=== PATIENT | female | born 2000 | race Caucasian/White ===

== ENCOUNTER 2024-08-26 06:36 | Outpatient (REF) | payer SELFPAY ==
--- NOTE | ~2024-08-26 | US_ITS ---
EXAMINATION: US FIRST TRIMESTER OB HISTORY: AMENORRHEA, ? DATING TECHNIQUE: Endovaginal scanning was performed. FINDINGS: There is a single, live intrauterine . AUA = 11 weeks 5 days BRYANNA(AUA) = 03/12[birth year]2025 CRL = 4.88cm FHR = 153bpm Right ovary: The right ovary measures 2.8 x 2.0 x 1.2 cm and is unremarkable. Left ovary: The left ovary measures 2.9 x 1.6 x 2.0 cm and is unremarkable. Cul-de-sac: No free fluid US/US OB <= 14 weeks fetus IMPRESSION: Single, live intrauterine of estimated gestational age 11 weeks, 5 days. Electronically signed by: Jose Raul Mabry MD 08/26/2024 10:43 AM EDT
--- OUTSIDE RECORDS SUMMARY | 2024-08-26 06:38 | XMS_ITS | Clinical Summary ---
Author Organization [facility] Address [address] [place] [id number] Phone Care Team Providers Care Office System Analyst Name Role Phone Neelam Sarabia MD Primary Care Provider [phone] Allergies No known active allergies Medications escitalopram 10 MG tabletIndication s:Anxiety and depression TAKE 1 TABLET (10 MG TOTAL) BY MOUTH EVERY MORNING. 90 tablet 05/06/2024 Active Norethindrone Acet-Ethinyl Est (Aurovela 1.530) 1.5-30 MG-MCG tabletIndication s:Dysmenorrhea TAKE 1 TABLET BY MOUTH EVERY DAY 28 tablet 05/27/2024 Active Active Problems Problem Noted Date Diagnosed Date Anxiety and depression 07/23/2023 Assessment & Plan (01/23/2024 5:00 PM EDT): JUANCARLOS 11, PHQ 7. Doing well on Lexapro 10 Assessment & Plan (07/23/2023 5:46 PM EDT): Teresita has moderate depression and moderate anxiety based on PHQ9 and GAD7. She also may have mild OCD. I will start fluoxetine 10 mg daily X 1 week then increase to 20 mg daily.No safety concerns Influenza vaccine refused 07/13/2018 Irregular menstrual cycle 07/07/2017 Assessment & Plan (01/23/2024 5:00 PM EDT): On control, no concerns Benign neoplasm of skin 06/27/2016 Resolved Problems Problem Noted Date Diagnosed Date Resolved Date Dysmenorrhea 10/19/2020 04/26/2022 Assessment & Plan (04/15/2022 1:08 PM EST): Well managed on , refill sent. Has well visit scheduled later this month. Discussed monitoring for ACHES, using condoms with sexual activity, and not smoking. Call with questions/concerns, otherwise follow up at next well visit. Will plan to send GC/CT at well visit. Assessment & Plan (05/14/2021 3:39 PM EST): Well controlled on 1.5-, happy with pill. Refill sent. Discussed monitoring for ACHES, using condoms with sexual activity, and not smoking. Call with questions/concerns, otherwise follow up at next well visit. Scoliosis (and kyphoscoliosis), idiopathic 07/07/2017 09/28/2020 Overview (08/09/2022): Diagnosis load July 2022 Encounters Date Type Department Care Team Description 06/15/[address] [phone] Neelam Sarabia MD Medication Follow-up 06/09/2024 Patient Outreach [address] [phone] Katina Frankel RN Care Plan; SSRI Follow-up from Last 3 Months Immunizations Immunization Administration Dates Next Due COVID-19 Pfizer, monovalent, 12+ years 08/09/2020 COVID-19 Vaccine Moderna, se asonal, 12+ years 03/31/2023 DTaP 11/26/2007, 5,04/29/2003,02/12,2002 HPV Vaccine 9 Valent 07/07/2017,06/27/2016 Hep A 07/07/2017,06/27/2016 Hep B 07/29/2003,2002,2002 Hep B, ped/adol 04/15/2022 HiB 01/19/2004, 4,02/24/2003,12/13 IPV 11/26/2007, 5,02/24/2003,12/13 Influenza 01/19/2004 Influenza, injectable, quadrivalent 04/15/2022 MMR 11/26/2007,01/19/2004 Meningococcal B Bexsero 11/08/2020,09/27/2020 Meningococcal Conj (Menactra) MCV4P 07/16/2019,1 06/05/2013 PPD Test 04/15/2022,04/10/2022 04/12/2022 Pneumococcal Conjugate 01/19/2004,2003,02/24/2003,12/13 Tdap 01/23/2024,04/04/2014 Varicella 11/26/2007,10/18/2003 Family History Medical History Relation Name Comments Asthma Mother Basal cell carcinoma Mother Melanoma Mother Cancer (Childhood Onset) Sister Relation Name Status Comments Mother Other : melanoma, bas al cell: mother Asthma Cancer, Type: (sister passed @ 7yrs old) Food Allergies Sister Social History Tobacco Use Types Packs/Day Years Used Date Smoking Tobacco: Never Smokeless Tobacco: Never Alcohol Use Standard Drinks/Week Comments Not Currently 0 (1 standard drink = 0.6 oz pur e alcohol) 2 drinks per week Hunger/Food Answer Date Recorded In the last 12 months, did y ou or your family ever eat less than you felt you should because there wasn't enough money for food? No 01/23/2024 Stable Housing Answer Date Recorded Are you worried that in the next 2 months you may not have stable housing? No 01/23/2024 Transportation Concerns Answer Date Rec orded In the last 12 months, have you or your family ever had to go without healthcare because you didn't have a way to get there? No 01/23/2024 Hazards in Home Answer Date Recorded Think about the place you li ve. Do you have problems with any of the following? Pests (mice or roaches), mold, no/not working smoke detectors, water leaks, no window guards. No 2023 Financing Utilities Answer Date Recorde d In the last 12 months, has t he electric, gas, oil, or water company threatened to shut off your services in your home? No 01/23/2024 Safety at Home Answer Date Recorded Are you or your family worried about feeling saf e in your home? No 01/23/2024 Outside Support Answer Date Recorded Do you feel that you need mo re support from other people or programs to help you care for yourself or your family? No 01/23/2024 Understanding Health Concerns Answer Da te Recorded Do you need help understandi ng your or your child's healthcare needs (diagnosis, medications, plan, etc.)? No 01/23/2024 Financing Health Concerns Answer Date R ecorded In the last 12 months, was t here a time when your child needed to see a doctor or get medications or supplies but could not because of cost? No 01/23/2024 Missing School or Work Answer Date Theron rded Did you or your child miss s chool or work because of a health problem that could have been avoided? No 01/23/2024 Child Education Answer Date Recorded Do you have concerns about y our/your child's learning or behavior in school, preschool, or daycare? No 01/23/2024 Comments No Sex and Gender Information Value Date Recorded Sex Assigned at Not on file Legal Sex Female 6:25 PM EDT Gender Identity Not on file Sexual Orientation Straight 07/16/2019 12 :08 PM EDT Last Filed Vital Signs Vital Sign Reading Time Taken Comments Blood Pressure 118/78 01/23/2024 2:55 PM EDT Pulse 68 01/23/2024 2:55 PM EDT Temperature 37 ??C (98.6 ??F) 07/12/2013 11:28 AM EDT Respiratory Rate - - Oxygen Saturation - - Inhaled Oxygen Concentration - - Weight 75.4 kg (166 lb 3.2 oz) 01/23/2024 2:55 P M EDT Height 173.4 cm (5' 8.25 ) 01/23/2024 2:55 PM ED T Body Mass Index 25.09 01/23/2024 2:55 PM EDT Plan of Treatment Health Maintenance Due Date Last Done Comments HIV Screening 2017 Hepatitis C Screening 2020 Chlamydia and Gonorrhea Screening 04/14/2024 01/23/2024, 04/24/2022, 09/27/2020 DTaP,Tdap,and Td Vaccines (8 - Td or Tdap) 01/22/2034 01/23/2024, 04/04/2014, 11/26/2007, Additional history exists HIB Vaccines Completed 01/19/2004, 04/14, 02/24/2003, Additional history exists Pneumococcal Vaccine Completed 01/19/2004, 04/29/2003, 02/24/2003, Additional history exists IPV Vaccines Completed 11/26/2007, 04/16, 02/24/2003, Additional history exists MMR Vaccines Completed 11/26/2007, 01/19/2004 Varicella Vaccines Completed 11/26/2007, 10/18/2003 HPV Vaccines Completed 07/07/2017, 06/27/2016 Hepatitis A Vaccines Completed 07/07/2017, 06/28/19 17 Meningococcal Vaccine Completed 07/16/2019, 014 Men B Vaccine Completed 11/08/2020, 09/27/2020 Hepatitis B Vaccines Completed 04/15/2022, 07/29/2003, 2002, Additional history exists Influenza Vaccines Completed 01/09/2024, 0 12/31/2022, 04/15/2022, Additional history exists COVID-19 Vaccine Completed 02/19/2024, , 04/16/2021, Additional history exists Goals Goal Patient Goal Type Associated Problems Recent Progress Patient-Stated? Author Take anxiety medication(s) as prescibed General Not on track( 5 3:31 PM EST) No Katina Frankel, PRATIK Note: 07/22 Fluoxetine 10mg once daily x 1 week then increase to fluoxetine 20mg once daily. 10/07/23- fluoxetine discontinued-hives. Lexapro 10mg x 2 wks then increase to Lexapro 15mg. 12/01/23 Lexapro 10mg for several weeks- no side effects noted. Mood stable. Increase to Lexapro 15mg. Follow up 01/07/24 as planned. 01/23/24 Doing well on Lexapro 10mg, never increased to Lexapro 15mg. 06/10/24- Feels like could benefit from an increase in her Lexapro. No specific reason just general anxiety. Lexapro increased to 15mg daily. Med ck in 1 month. Use Anxiety Guided Self-Management tool General On track( 5 3:32 PM EST) No Katina Frankel, PRATIK Note: Utilize self guides daily, not just when feeling anxious. The more you practice deep breathing, mindfulness, muscle relaxation, thinking traps and facing your fears the easier managing your anxiety will be. Patient/Parent would like to manage anxiety better Care Plan Patient is having increased feelings of anxiety Expected goal attainment (0)(06/09/2024 11:50 AM EST) No Katina Frankel RN Note: Patient would like to not have panic attacks and be less anxious about school. Procedures * Due to [place] law, this organization might not be sharing sensitive test results. Procedure Name Priority Date/Time Associated Diagnosis Comments CHLAMYDIA AND GONORRHEA, AMPLIFIED Routine 01/23/2024 3:28 PM EDT Encounter for screening examination for sexually transmitted disease from Last 3 Months or Most Recently Relevant to Health Maintenance Results * Due to [facility] law, this organization might not be sharing sensitive test results. * Chlamydia and Gonorrhoea, Amplified (01/23/2024 3:28 PM EDT) Chlamydia trachomatis RNA, TMA NOT DETECTED NOT DETECTED [facility] Neisseria gonorrhoeae, OSBALDO NOT DETECTED NOT DETECTED [facility] Comment [facility] Comment: The analytical performance characteristics of this assay, when used to test SurePath(TM) specimens have been determined by [facility]. The modifications have not been cleared or approved by the FDA. This assay has been validated pursuant to the CLIA regulations and is used for clinical purposes. For additional information, please refer to https://education.[employer]/faq/INE459 (This link is being provided for information/ educational purposes only.) Urine (Urine, Random (not clean void)) 01/23/2024 3:28 PM EDT 01/23/2024 10:26 PM EDT Narrative Resulting Agency Comment Performing Organization Information: ?Site ID: [id number] ?Name: [facility] ?Address: [address] [place] [id number] ?Director: Elias Brewer Valeria Watkins NP LAB MICROBIOLOGY - GENERAL ORDERABLES Final Result [facility] from Last 3 Months or Most Recently Relevant to Health Maintenance Additional Health Concerns Active Problems Noted Date Diagnosed Date Patient is having increased feelings of anxiety 08/05/2023 Note: Teresita has felt increased anxiety at college. She has trouble falling asleep and wakes once at night. She worries about school, exams even though doing ok. Has occ panic attack where she has tachycardia, queasy stomach and breathes fast. Teresita has been given therapy resources through [facility]. She does not have rituals but likes everything in it's place and dislikes disorder. She will rewash dishes if she does not think they were washed well. She will redo anything that she feels is not up to her expectations Insurance AETNA AET[employer] Care Teams Office System Analyst Relationship Specialty Start Date End Date Neelam Sarabia MD [address] [place] [id number] PCP - General 08/20/17
--- OUTSIDE RECORDS SUMMARY | 2024-08-26 06:38 | XMS_ITS ---
Care Plan Created on: August 26, 2024 Teresita Cloud : 2000 Sex: Female Author Organization [facility] Address [address] [place] [phone] Phone Care Team Providers Care Extract Mixer Name Role Phone Neelam Sarabia MD Primary Care Provider [phone] Active Problems Problem Noted Date Diagnosed Date [...] (05/14/2021 3:39 PM EST): Well controlled on .5-, happy with pill. Refill sent. Discussed monitoring for ACHES, using condoms with sexual activity, and not smoking. Call with questions/concerns, otherwise follow up at next well visit. Scoliosis (and kyphoscoliosis), idiopathic 07/07/2017 09/28/2020 Overview (08/09/2022): Diagnosis load July 2022 Additional Health Concerns Active Problems Noted Date [...] Teresita has been given therapy resources through [facility]. She does not have rituals but likes everything in it's place and dislikes disorder. She will rewash dishes if she does not think they were washed well. She will redo anything that she feels is not up to her expectations Goals Goal Patient Goal Type Associated Problems Recent Progress Patient-Stated? Author Take anxiety medication(s) as prescibed General Not on track( 5 3:31 PM EST) No Katina Frankle, PRATIK Note: 07/22 Fluoxetine 10mg once daily [...] attacks and be less anxious about school. Interventions Care Plan Interventions Intervention Entry Date Outcome Review and use teach back to confirm patient/caregiver 08/05/2023 Note:[id number] medication start and with any dose change: Monitor for any side effects such as nausea, vomiting, insomnia, restlessness, agitation, or suicidal ideation. Call the office immediately if any of these occur. Discussed importance of taking medication as directed. Side effects can occur with missed dose. Educate patient/caregiver 08/05/2023 Note: Reviewed Anxiety Self-Guides: Deep breathing, Relaxation, Muscle Relaxation, Thinking Traps and Facing Your Fears. Breathing exercises for stress Let your breath flow as deep down into your belly as is comfortable, without forcing it. Try breathing in through your nose and out through your mouth. Breathe in gently and regularly. ... Then let it flow out gently, counting from 1 to 5 again, if you find this helpful. Mindfulness Exercises Sit quietly with your feet on the floor, or lie down, and relax your body. Begin with some slow, diaphragmatic breathing. Focus your mind on your breath as it flows in and out of your nostrils. Continue to follow your breath to whatever extent you can. 2. As you breathe, notice the tendency of the mind to wander. Instead of trying to focus just on the breath, just notice what the mind does. It may wander to a worry, or a memory, or to what you plan to do later today. You may notice sensations in your body, such as a pain or itch. You may hear or smell things. Just notice whatever happens and then gently bring yourself back to your breath. You can remind yourself that you will tend to these other things later, and for now you will just spend time paying attention to your breath and to your mind. 3. Allow the mind to wander as it will, time after time. Avoid the tendency to try hard to focus on something. Simply allow your mind to wander and then bring yourself back to your breath. Notice the tendency of your experience to change. Imagine that each thought, sensation, emotion, is like a cloud floating through the yolanda, soon to be replaced by another one. 4. Continue to practice this for about 10 minutes. Depending on your schedule you can add time to your practice if you want. Practice once or twice a day. 5. Remember that there is no ? right? way to do this, other than to just notice whatever comes into your consciousness. It is impossible to ? fail? at mindfulness. Tips to soothe your nervous system: Deep breaths, moving breath from chest to belly and increasing length of exhale; you can also try humming or shushing during the exhale Give yourself a hug or ask for a hug from someone you trust Talk to someone you trust Turn on some smoothing or feel-good music Watch something that will make you laugh Take a warm bath or shower Try meditation flor like Headspace or Calm Practice some yoga or other gentle exercise Go outside if the weather permits Introduce gentle pressure, such as a weighted blanket or cuddling with a pet on your chest Muscle Relaxation First, squeeze the muscles in your forehead. Hold this feeling for 10-15 seconds and notice the increase in tightness and tension in these muscles. Allow these muscles to release any tension while you count for at least 30 seconds, or until this area feels entirely relaxed. Now tense the muscles in your jaw with your teeth together. Again you want to be holding this for 10-15 seconds so that you are able to notice the build in tension. Then slowly release the tension, counting to at least 30 seconds or until you are completely relaxed. This part should target both your neck and shoulders by bringing your shoulders up to your ears (or as high as possible in that direction without causing discomfort). Hold this for the same amount of time (10-15 seconds) and repeat the countdown, relaxing as you release the tension. With both hands, form a fist. Bring your fists towards the centre of your chest and tense the whole arm in this position. After holding for 10-15 seconds, release the tension and count up to at least 30 seconds. Increase tension in your buttocks for 10-15 seconds. Notice the tension and then start relaxing like in the previous steps. Slowly and steadily increase the tension throughout your thigh and calf muscle groups, hold this tension for 10-15 seconds and then release while you count for 30 seconds. Notice new feelings of relaxation and the tension melting away. Tense your feet and toes, tightening your muscles as much as possible. After holding, relax and feel your muscles decrease let go of tension and tightness. Thinking Traps Predicting that bad things will happen in the future. People with anxiety often spend a lot of time imagining bad things they fear will happen in the future. Example: ? This is the longest car ride ever. We're going to get stuck in traffic and miss the whole soccer tournament. Or we'll get into an accident! Ugh, this is so stressful!? Making little problems or worries seem like big problems. When we catastrophize, we make a big deal out of our worries, even when they might actually be pretty small. Example: ? I'm feeling nervous about my learner's permit test. I'm going to get all the questions wrong and never be able to drive! I should tell my mom I'm sick.? Assuming that because we were worried or nervous in one situation, we will feel like that again. When we overgeneralize, we ignore the unique facts about a situation. Example: ? Aleida laughed when I tripped in the cafeteria that one time. She's going to keep making fun of me and get other people to start doing it. Should I stop hanging out with her?? Seeing things as ? all good? or ? all bad.? When we use [id number] thinking, we ignore the fact that many situations are somewhere in between and have both positive and negative aspects. Example: ? I got an '86' on my math exam; 7 problems wrong. I'm an idiot! Will my grade go down? What if my parents are disappointed?? With any of the above thinking traps ask: What are the facts? What would I say to my friend? What can I do to take my mind off things? Facing your Fears The process of facing fears is called EXPOSURE. Exposure involves gradually and repeatedly going into feared situations until you feel less anxious. Exposure is not dangerous and will not make the fear worse. And after a while, your anxiety will naturally lessen. Starting with situations that are less scary, you work your way up to facing things that cause you a great deal of anxiety. Over time, you build up confidence in those situations and may even come to enjoy them. This process often happens naturally. A person who is afraid of the water takes swimming lessons every week and practises putting their feet and legs in the water, then the whole body and, finally, diving underwater. People with a fear of water can learn to love swimming. The same process occurs when people learn to ride a bike, skate, or drive a car. Starting with the situation that causes the least anxiety, repeatedly engage in that activity (e.g., saying ? hi? to the bus van driver everyday) until you start to feel less anxious doing it. If the situation is one that you can remain in for a prolonged period of time (such as standing on a balcony), stay in the situation long enough for your anxiety to lessen (e.g., standing on the balcony for 20-30 minutes). If the situation is short in duration, try ? looping? it, which involves doing the same thing over and over again for a set number of times (e.g., repeatedly driving back and forth over a bridge until you start to feel less anxious or making consecutive phone calls until you feel more comfortable doing it). If you stay in a situation long enough (or continue engaging in a specific activity), your anxiety will start to reduce. This is because anxiety takes a lot of energy and at some point it ? runs out of gas? . The longer you face something, the more you get used to it and the less anxious you will feel when you face it again. It is important to plan exposure exercises in advance; that way you feel more in control of the situation. Identify what you are going to do and when you plan to do it. It is important to practise on a regular basis. Some steps can be practised daily (e.g., driving over a bridge, taking an elevator, saying ? hi? to a stranger, touching doorknobs), while other steps can only be done once in a while (e.g., giving a formal presentation to a large group or taking a plane trip). However, the more often you practise the faster the fear will fade. Don? t forget to maintain the gains that you have made. Even if you have become comfortable doing something, it? s important to keep exposing yourself to it from time to time, so your fears don? t creep back. For example, if you have overcome a fear of needles, you should schedule routine blood tests or donate blood every six months so that your fear of needles does not return. It? s not easy facing fears. Reward yourself when you do it! It may be helpful to use specific rewards as a motivation to achieve a goal. For example, plan to purchase a special gift for yourself (DVD, CD, book, treat) or engage in a fun activity (rent a movie, go to the movies, go out for lunch or dinner, plan a relaxing evening) after you reach a goal. Don? t forget the power of positive self-talk (e.g., ? I did it!? ). TIP: Don't be discouraged if your fears start creeping back. This can happen from time to time, especially during stressful periods or transitions (for example, starting a new job or moving). This is normal. It just means that you need to start practicing using the tools - plan some exposures! Remember, coping with anxiety is a lifelong process. Related Goals and Interventions Goal Associated Intervent ions Patient/Parent would like to manage anxiety better Review and use teach back to confirm patient/caregiver; Educate patient/caregiver
--- OUTSIDE RECORDS SUMMARY | 2024-08-26 06:39 | XMS_ITS ---
Author Organization [facility] Address [address] [place] [phone] Phone Care Team Providers Care Cleaning Crew Member Name Role Phone Neelam Sarabia MD Primary Care Provider [phone] Care Management Program Status:Enrolled (Active) Start date:08/04/2023 Enrollment date:08/04/2023 Enrollment reason:Identified - Anxiety Case Team Name Relationship Phone Katina Frankel RN(Responsible Staff) [phone] Continued Care and Services Coordination
--- OUTSIDE RECORDS SUMMARY | 2024-08-26 06:39 | XMS_ITS | Clinical Summary ---
Author Organization [facility] Address [address] [place] [address] Care Team Providers Care Manager Configuration Name Role Phone Cornell Neelam Villa Primary Care Provider [phone] Allergies No known active allergies Medications Acetaminophen 160 MG/5ML ElixirIndication s:Radial head fracture, closed 2 tsp po x 1 now 10 mL 0 09/21/2012 Active Social History Tobacco Use Types Packs/Day Years Used Date Smoking Tobacco: Never Assessed Comments Unknown Sex and Gender Information Value Date Recorded Sex Assigned at Not on file Legal Sex Female 12:57 AM EDT Gender Identity Not on file Sexual Orientation Not on file Last Filed Vital Signs Vital Sign Reading Time Taken Comments Blood Pressure 109/50 09/21/2012 2:46 PM EDT Pulse 78 09/21/2012 2:46 PM EDT Temperature 37.1 ??C (98.7 ??F) 09/21/2012 2:46 PM ED T Respiratory Rate - - Oxygen Saturation - - Inhaled Oxygen Concentration - - Weight 38.7 kg (85 lb 6.4 oz) 09/21/2012 2:46 PM EDT Height 143.5 cm (4' 8.5 ) 09/21/2012 2:46 PM EDT Body Mass Index 18.81 09/21/2012 2:46 PM EDT Plan of Treatment Health Maintenance Due Date Last Done Comments Hepatitis C Screening 2002 MMR (1 of 1 - Standard series) 10/17/2003 Varicella (1 of 2 - 13+ 2-do se series) 10/17/2015 HPV Vaccine (1 - 3-dose series) 2017 Chlamydia 2018 Pap Smear 2018 DTaP/Tdap/Td (1 - Tdap) 2020 Hep B (1 of 3 - 19+ 3-dose series) 2021 COVID-19 Vaccine (1 - 2023-2 5 season) 2023 Influenza (#1) 2023 Zoster (Shingrix) (1 of 2) 2052 Hep A Aged Out No longer eligi ble based on patient's age to complete this topic Hib Aged Out No longer eligi ble based on patient's age to complete this topic Meningococcal ACWY Aged Out No longer eligible based on patient's age to complete this topic Pneumococcal Aged Out No longer eligi ble based on patient's age to complete this topic Polio (IPV/OPV) Aged Out No longer el igible based on patient's age to complete this topic Insurance [employer] PPO Care Teams Manager Configuration Relationship Specialty Start Date End Date Neelam Sarabia [facility] [address] [place] [id number] PCP - General 04/02/09
--- OUTSIDE RECORDS SUMMARY | 2024-08-26 06:39 | XMS_ITS ---
Author Name [facility] Organization Unknown History of Medication Use Medication Directions Dispensed Refills Start Date End Date Stat () 1.5 mg-30 mcg (21)/75 mg (7) tablet Take 1 tablet every day by oral route as directed. 06/24/2024 06/23/2024 active ciprofloxacin 250 mg tablet 06/23/2024 completed fluoxetine 10 mg capsule TAKE 2 CAPSULES BY MOUTH EVERY MORNING. 06/23/2024 completed prednisone 20 mg tablet TAKE 1 TABLET BY MOUTH EVERY DAY 06/23/2024 completed rifampin 300 mg capsule TAKE 2 CAPSULES (600 MG TOTAL) BY MOUTH DAILY FOR 4 MONTHS. TAKE ON EMPTY STOMACH 05/07/2023 completed () 1.5 mg-30 mcg (21)/75 mg (7) tablet active escitalopram 10 mg tablet TAKE 1 TABLET (10 MG TOTAL) BY MOUTH EVERY MORNING. active Immunizations Vaccine Date Source Lot Number Status COVID-19, mRNA, LNP-S, PF, t ris-sucrose, 30 mcg/0.3 mL 02/19/2024 [facility] [id number] completed Tdap 01/23/2024 [facility] [id number] completed Influenza, split virus, trivalent, PF 01/09/2024 [facility] [id number] completed COVID-19, mRNA, LNP-S, PF, 50 mcg/0.5 mL 03/31/2023 [facility] H [id number] completed Influenza, split virus, quadrivalent, PF 12/31/2022 [facility] H [id number] completed COVID-19, mRNA, LNP-S, bival ent, PF, 50 mcg/0.5 mL or 25mcg/0.25 mL dose 11/17/2022 [facility] [id number] completed Hep B, adolescent or pediatric 04/15/2022 [facility] [id number] completed Influenza, split virus, quad rivalent, preservative 04/15/2022 [facility] [id number] completed COVID-19, mRNA, LNP-S, PF, 30 mcg/0.3 mL dose 04/16/2021 [facility] [id number] completed meningococcal B, OMV [id number] leted meningococcal B, OMV 09/27/2020 [facility] [id number] comp leted COVID-19, mRNA, LNP-S, PF, 30 mcg/0.3 mL dose 08/30/2020 [facility] [id number] completed COVID-19, mRNA, LNP-S, PF, 30 mcg/0.3 mL dose 08/09/2020 [facility] [id number] completed meningococcal MCV4P 07/16/2019 [facility] [id number] compl eted Tdap 04/04/2014 [facility] completed MMR 11/26/2007 [facility] completed varicella 11/26/2007 [facility] completed MMR 01/19/2004 [facility] completed varicella 10/18/2003 [facility] completed Hep B, adult 07/29/2003 [facility] completed Hep B, adult 2002 [facility] Encounters Encounter Type Encounter Reason Primary Diagnosis Location Date Ambulatory Encntr screen for infections w sexl mode of transmiss Encntr screen for infections w sexl mode of transmiss [facility] 06/24/2024 Ambulatory no current diagnosis [facility] 05/07/2023 Care Team Organization Name Specialty Phone Email Start Date End Da te [facility] 05/07/2023 [facility] 05/07/2023
--- OUTSIDE RECORDS SUMMARY | 2024-08-26 06:39 | XMS_ITS | Encounter Summary ---
Author Organization [facility] Address [address] [place] [phone] Phone Care Team Providers Care Check Out Clerk Name Role Phone Neelam Sarabia MD Primary Care Provider Reason for Visit * Reason Onset Date Comments Med Refill 05/23/2023 Encounter Details Date Type Department Care Team (Late st Contact Info) Description 05/23/2023 Refill Child [facility] [address] [address] Neelam Sarabia MD [address] [place] [address] Dysmenorrhea Social History Tobacco Use Types Packs/Day Years Used Date Smoking Tobacco: Never Smokeless Tobacco: Never Alcohol Use Standard Drinks/Week Comments Yes 1 (1 standard drink = 0.6 oz pur e alcohol) Hunger/Food Answer Date Recorded In the last 12 months, did y ou or your family ever eat less than you felt you should because there wasn't enough money for food? No 04/24/2022 Stable Housing Answer Date Recorded Are you worried that in the next 2 months you may not have stable housing? No 04/24/2022 Transportation Concerns Answer Date Rec orded In the last 12 months, have you or your family ever had to go without healthcare because you didn't have a way to get there? No 04/24/2022 Hazards in Home Answer Date Recorded Think about the place you li ve. Do you have problems with any of the following? Pests (mice or roaches), mold, no/not working smoke detectors, water leaks, no window guards. No 2022 Financing Utilities Answer Date Recorde d In the last 12 months, has t he electric, gas, oil, or water company threatened to shut off your services in your home? No 04/24/2022 Safety at Home Answer Date Recorded Are you or your family worried about feeling saf e in your home? No 04/24/2022 Outside Support Answer Date Recorded Do you feel that you need mo re support from other people or programs to help you care for yourself or your family? No 04/24/2022 Understanding Health Concerns Answer Da te Recorded Do you need help understandi ng your or your child's healthcare needs (diagnosis, medications, plan, etc.)? No 04/24/2022 Financing Health Concerns Answer Date R ecorded In the last 12 months, was t here a time when your child needed to see a doctor or get medications or supplies but could not because of cost? No 04/24/2022 Missing School or Work Answer Date Theron rded Did you or your child miss s chool or work because of a health problem that could have been avoided? No 04/24/2022 Comments No Sex and Gender Information Value Date Recorded Sex Assigned at Not on file Legal Sex Female 6:25 PM EDT Gender Identity Not on file Sexual Orientation Straight 07/16/2019 12 :08 PM EDT documented as of this encounter Plan of Treatment Not on file documented as of this encounter Visit Diagnoses Diagnosis Dysmenorrhea documented in this encounter Care Teams Check Out Clerk Relationship Specialty Start Date End Date Neelam Sarabia MD [address] [place] [phone] PCP - General 08/20/17 documented as of this encounter
--- OUTSIDE RECORDS SUMMARY | 2024-08-26 06:39 | XMS_ITS | Encounter Summary ---
Author Organization [facility] Address [address] [place] [phone] Phone Care Team Providers Care Acetone Recovery Worker Name Role Phone Neelam Sarabia MD Primary Care Provider [phone] Reason for Visit * Reason Onset Date Comments Med Refill 05/26/2022 Encounter Details Date Type Department Care Team (Late st Contact Info) Description 05/26/2022 Refill [facility] [address] [address] Neelam Sarabia MD [address] [place] [phone] Positive QuantiFERON-TB Gold test Social History Tobacco Use Types Packs/Day Years [...] as of this encounter Visit Diagnoses Diagnosis Positive QuantiFERON-TB Gold test documented in this encounter Care Teams Acetone Recovery Worker Relationship Specialty Start Date End Date Neelam Sarabia MD [address] [place] [phone] PCP - General 08/20/17 documented as of this encounter
--- OUTSIDE RECORDS SUMMARY | 2024-08-26 06:39 | XMS_ITS | Data Portability ---
Author Organization [place] [facility] Address [address] [facility] [id number] [place] [address] Care Team Providers Care Coal Yard Supervisor Name Role Phone MARYANA ERVIN Fios Line Installer Unavailable ITALO CASTRO Primary Care Provider Assessment No assessment recorded. Plan of Treatment Reminders Order Date Submit Date Provider Last Modified By Organization Details Last Modified Time Details Appointments ANNUAL RECREATION THERAPY TEACHER 15 2025 09:00A M Maryana Ervin MD Not available Not available Not available Lab CT + NG + TV, DNA, urine/sw ab 2024 025 [place] In-Office Order, Internal Use Only DO Not Attach Compendium DO Not Attach Compendium, Do Not Delete/merge, [id number] 06/25/2024 13:03:58 pap, IG + reflex HPV 2024 025 [facility], [address] [place], [address] 06/29/2024 10:54:38 Referral None recorded . Procedures None recorded . Surgeries None recorded . Imaging None recorded . Medication Orders .09/10 (28) 1.5 mg-30 mcg (21)/75 mg (7) tablet 2024 025 [place] [id number], [address] [facility], [place], [address], 06/24/2024 08:53:30 Patient TargetsNo targets recorded. Patient InstructionsNo instructions recorded. Reason for Referral None Reported. Results Created Date Observation Date Name Description Value Unit Range Abnormal Flag Note LastModifiedBy Organization Detail LastModifiedTime 01/25/05/08/2023 CT + NG + TV, DNA, urine /swab gonorrhea (GC) negati ve negati ve normal Not Available In-Office Order Internal Use Only DO Not Attach Compendium DO Not Attach Compendium, Do Not Delete/merge, [id number] 05/07/2023 13:47:20 05/08/19 24 05/08/2023 CT + NG + TV, DNA, urine /swab chlamydia (CT) negati ve negati ve normal Not Available In-Office Order Internal Use Only DO Not Attach Compendium DO Not Attach Compendium, Do Not Delete/merge, [id number] 05/07/2023 13:47:20 05/08/19 24 05/08/2023 CT + NG + TV, DNA, urine /swab trichomonias is (TV) negati ve negati ve normal Not Available In-Office Order Internal Use Only DO Not Attach Compendium DO Not Attach Compendium, Do Not Delete/merge, 05/07/2023 13:47:20 06/25/1906/24/2024 THINP REP PAP TEST (IMAG ER) WITH HPV REFLE X report Report Final Gynec ologi reg Cytol ogy Repor t ----- ----- ----- ----- ----- ----- ----- ----- ----- ----- ----- ----- ThinP rep Pap Test with HPV Refle x SPECI MEN ADEQU ACY: SATIS FACTO RY FOR EVALU ATION ; ENDOC ERVIC AL/TR ANSFO RMATI ON ZONE COMPO NENT PRESE NT. INTER PRETA TION: NEGAT ELIZA FOR INTRA EPITH ELIAL LESIO N OR GIRISH RAMIREZ . Itzel girard: [place] ([facility] ) Elect bruna girard: [place], [place] ([facility] ) ----- ----- ----- ----- ----- ----- ----- ----- ----- ----- ----- ----- CLINI REG INFOR COURTNEY N: LMP: 06/06 Clini reg Histo ry: RTN Biops y Date: NG Speci men Sourc e: Cervi x, Endoc ervix Previ ous Pap Date: NG CPT Codes : 74999 ICD Codes : Z12.4 Not Available [facility] [address] [place], [address] 06/29/2024 10:54:37 06/26/1906/25/2024 CT + NG + TV, DNA, urine /swab gonorrhea (GC) negati ve negati ve normal Not Available In-Office Order Internal Use Only DO Not Attach Compendium DO Not Attach Compendium, Do Not Delete/merge, [id number] 06/24/2024 08:41:51 06/26/1906/25/2024 CT + NG + TV, DNA, urine /swab chlamydia (CT) negati ve negati ve normal Not Available In-Office Order Internal Use Only DO Not Attach Compendium DO Not Attach Compendium, Do Not Delete/merge, [id number] 06/24/2024 08:41:51 06/26/1906/25/2024 CT + NG + TV, DNA, urine /swab trichomonias is (TV) negati ve negati ve normal Not Available In-Office Order Internal Use Only DO Not Attach Compendium DO Not Attach Compendium, Do Not Delete/merge, [id number] 06/24/2024 08:41:51 Result Notes None recorded. Problems No Known Problems Medical Equipment None Reported. Allergies No known drug allergies Medications Name Sig Start Date Stop Date Status Note LastModified by Organization Details LastModified Time prednisone 20 mg tablet TAKE 1 TABLET BY MOUTH EVERY DAY 06/23 completed Not Available Not Available Not Available ciprofloxac in 250 mg tablet 06/23 completed Not Available Not Available Not Available rifampin 300 mg capsule TAKE 2 CAPSULES (600 MG TOTAL) BY MOUTH DAILY FOR 4 MONTHS. TAKE ON EMPTY STOMACH 05/07 completed Not Available Not Available Not Available fluoxetine 10 mg capsule TAKE 2 CAPSULES BY MOUTH EVERY MORNING. 06/23 completed Not Available Not Available Not Available escitalopra m 10 mg tablet TAKE 1 TABLET (10 MG TOTAL) BY MOUTH EVERY MORNING. active Not Available Not Available No t Available (21) 1.5 mg-30 mcg tablet TAKE 1 TABLET BY MOUTH EVERY DAY 06/23 completed Not Available Not Available Not Available (28) 1.5 mg-30 mcg (21)/75 mg (7) tablet TAKE 1 TABLET BY MOUTH EVERY DAY DIRECTED active Not Available Not Available No t Available Vitals Date Recorded Body weight Body mass index (BMI) Body mass index (BMI) Percentile per age and sex Body height Systolic blood pressure Diastolic blood pressure Provider Name and Address Organization Details Last Updated DateTime 4 82862.0 4 g 22.4 kg/m2 57 % 175.26 cm 102 mm[Hg] 62 mm[Hg] Rekha Tom [facility] 4 13:38:07 Date Recorded Body height Body mass index (BMI) Body weight Systolic blood pressure Diastolic blood pressure Provider Name and Address Organization Details Last Updated DateTime 06/24/2024 175.26 cm 22.2 kg/m2 86973.86 g 112 mm[Hg] 62 mm[Hg] Meggan Huang [facility] 5 08:40:39 Social History Question Answer Notes LastModified by Organizat ion Details LastModified Time Tobacco Smoking Status [facility] 13:35:55 Do You Have An Advance Directive? No Information n ot available 06/24/2024 How Many Years Have You Consumed Alcohol? 0 Information not available 06/24/2024 What Is Your Level Of Caffeine Consumption? None Information not available 06/24/2024 In The 14 Days Before Symptom Onset, Have You Had Close Contact With A Laboratory-confirm ed COVID-19 While That Case Was Ill? No Information n ot available 06/24/2024 In The 14 Days Before Symptom Onset, Have You Had Close Contact With A Person Who Is Under Investigation For COVID-19 While That Person Was Ill? No Information not available 06/24/2024 Have You Been To An Area Known To Be High Risk For COVID-19? No Information not available 06/24/2024 How Many Alcoholic Drinks Do You Consume Per Day On Average? 0 Information not available 06/24/2024 Do You Reside In Or Have You Traveled To An Area Where Ebola Virus Transmission Is Active? No Information not available 06/24/2024 What Is The Highest Grade Or Level Of School You Have Completed Or The Highest Degree You Have Received? [id number] Information not available 06/24/2024 Have There Been Any Changes To Your Family Or Social Situation? No Information no t available 06/24/2024 Have You Recently Or Are You Planning To Travel To An Area With Zika Virus? No Information not available 06/24/2024 How Many Times In The Past Year Have You Used An Illegal Drug Or Used A Prescription Medication For Nonmedical Reasons? 0 Information not available 06/24/2024 Do You Have Any Children? No Information not available 05/07/2023 Does Your Partner Physically Hurt You Or Threaten To Hurt You? No Information not available 05/07/2023 Has Your Partner Forced You To Have Sex Or Perform Sex Acts When You Did Not Want To? No Information not available 05/07/2023 Does Your Partner Insult, Scream At Or Talk Down To You? No Information not available 05/07/2023 Does Your Partner Control You Or Any Part Of Your Life? No Information n ot available 05/07/2023 Are You Afraid Of Your Partner? No Information not available 05/07/2023 Drug Use? No Information no t available 05/07/2023 Drug Abuse To None Information not available 06/24/2024 Do You Feel Safe At Home? Yes Information not available 05/07/2023 How Many Children Do You Have? 0 Information not available 05/07/2023 Have You Ever Been Counseled For Unhealthy Alcohol Use? No Information not available 06/24/2024 Do You Use Protection During Sex? Usually Information not available 05/07/2023 Are You Sexually Active? Yes Information not available 05/07/2023 How Much Tobacco Do You Smoke? No Information not available 06/24/2024 Has Tobacco Cessation Counseling Been Provided? No Information not available 06/24/2024 Have You Recently Traveled Abroad? No Information not available 06/24/2024 How Many Days In The Past Year Have You Consumed 4 Or More Drinks? 0 Information not available 06/24/2024 Sex: Unknown Functional Status Question Answer Note LastModified by Organizat ion Details LastModified Time How many times per week do you consume alcohol? Less than 1 time per week Information not available 06/24/2024 What is your level of alcohol consumption? Occasional Information not available 05/07/2023 Are you currently employed? Yes Information not available 06/24/2024 What is your exercise level? Moderate Information not available 06/24/2024 Mental Status Question Answer Note LastModified by Organizat ion Details LastModified Time Do you feel stressed (tense, restless, nervous, or anxious, or unable to sleep at night)? [id number] Information not available 06/24/2024 Do you have difficulty concentrating, remembering or making decisions? No Information no t available 06/24/2024 Family History Nothing Reported. Medical History Condition Response Anxiety Disorder Y Depression Y Gynecological History Statement/Question Response Benign Breast Disease N Flow Light Date of LMP 06/06/2024 Breast Biopsy N IPV Screen Done 06/24/2024 [facility] Biopsy N Post Menopausal Bleeding N STIs/STDs N PID N Cervical Cancer N History of Endometrial Biopsy? N BrCa gene tested? N Ovarian Cancer N Breast Cancer N Bladder Problems N Abnormal Uterine Bleeding N Abnormal Pap N BrCa Positive N Infertility N Breast Ultrasound N Leep N Sexual Orientation heterosexual HPV Vaccine Y Duration of Flow (days) 5 Endometriosis N Age at Menarche 16 Fibroids N Uterine Cancer N Current Control Method None Frequency of Cycle (Q days) 28 Mammogram Required? N Sexually Active? Y Sexual Problems? N Date of Last Pap Smear Pap Required? N Hormone Replacement Therapy N Obstetrics History GPAL:G 0 P 0 0 0 0 Immunizations Vaccine Type Date Status Note Provider Nam e and Address Organization Details Recorded Time Influenza, split virus, quadrivalent, preservative 3 completed Meggan Huang null, [facility] 06/23/2024 08:47:13 meningococcal B, OMV 1 completed Meggan Buchannan null, [facility] 06/23/2024 08:47:13 meningococcal B, OMV 1 completed Meggan Buchannan null, [facility] 06/23/2024 08:47:13 COVID-19, mRNA, LNP-S, PF, 30 mcg/0.3 mL dose 2 completed Meggan Buchannan null, [facility] 06/23/2024 08:47:13 COVID-19, mRNA, LNP-S, PF, 30 mcg/0.3 mL dose 1 completed Meggan Buchannan null, [facility] 06/23/2024 08:47:13 COVID-19, mRNA, LNP-S, PF, 30 mcg/0.3 mL dose 1 completed Meggan Buchannan null, [facility] 06/23/2024 08:47:13 COVID-19, mRNA, LNP-S, bivalent, PF, 50 mcg/0.5 mL or 25mcg/0.25 mL dose 3 completed Meggan Buchannan null, [facility] 06/23/2024 08:47:13 COVID-19, mRNA, LNP-S, PF, 50 mcg/0.5 mL 3 completed Meggan Buchannan null, [facility] 06/23/2024 08:47:13 Hep B, adolescent or pediatric 3 completed Meggan Buchannan null, [facility] 06/23/2024 08:47:13 meningococcal MCV4P 0 completed Meggan Buchannan null, [facility] 06/23/2024 08:47:13 Influenza, split virus, quadrivalent, PF 3 completed Meggan Buchannan null, [facility] 06/23/2024 08:47:13 MMR 8 completed Meggan Buchannan null, [facility] 06/24/2024 08:38:35 MMR 4 completed Meggan Buchannan null, [facility] 06/24/2024 08:38:35 COVID-19, mRNA, LNP-S, PF, lashell-sucrose, 30 mcg/0.3 mL 4 completed Meggan Buchannan null, [facility] 06/24/2024 08:38:35 Tdap 4 completed Meggan Buchannan null, [facility] 06/24/2024 08:38:35 Tdap 4 completed Meggan Buchannan null, [facility] 06/24/2024 08:38:35 varicella 4 completed Meggan Buchannan null, [facility] 06/24/2024 08:38:35 varicella 8 completed Meggan Buchannan null, [facility] 06/24/2024 08:38:35 Influenza, split virus, trivalent, PF 4 completed Meggan Buchannan null, [facility] 06/24/2024 08:38:35 Hep B, adult 4 completed Meggan Buchannan null, [facility] 06/24/2024 08:38:35 Hep B, adult 3 completed Meggan Buchannan null, [facility] 06/24/2024 08:38:35 Hep B, adult 3 completed Meggan Buchannan null, [facility] 06/24/2024 08:38:35 Past Encounters Encounter ID Performer Location Encounter Start Date Encounter Closed Date Diagnosis/Indication Diagnosis SNOMED-CT Code Diagnosis ICD10 Code Diagnosis Note [id number] Maryana Ervin MD [facility] [address] [address] 05/07/2023 13:28:43 05/07/2023 13:50:37 Gynecologic examination 80899587 Z01.419 Uses oral contraception 1885928 Z30.41 [id number] Maryana Ervin MD [facility] [address] [address] 06/24/2024 08:31:00 06/24/2024 09:01:35 Gynecologic examination 72946445 Z01.419 Screening for malignant neoplasm of cervix 114795808 Z12.4 Venereal d isease screening 511981412 Z11.3 Surveillan ce of oral contraception 850274038 Z30.41 Health Concerns Section Related Observation LastModified by Organization Detai ls LastModified Time None Recorded Concern Status LastModified by Organization Details LastModified Time None Recorded Advance Directives Directive N: Payers Insurance Date Sequence Insurance Name Policy Number Policy Corona Covered Member ID Corona Member ID Guarantor Name 07/05/2024 1 [employer] [id number] Teresita Cloud 05/07/2023 1 [facility] Suly Colud [id number] Teresita Cloud Notes Date Note Type Note Provider Name and Address Organization Details Recorded Time 05/07/2023 text/html On OCPs. 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 Period regular. Would like to start OCP again. Maryana Ervin MD 175 [facility], [address] [place] [address], [phone], [facility] 06/24/2024 08:59:55 OBGyn Episode No OBEpisode recorded.
--- OUTSIDE RECORDS SUMMARY | 2024-08-26 06:39 | XMS_ITS | Encounter Summary ---
Author Organization [facility] Address [address] [place] [phone] Phone Care Team Providers Care Web Development Manager Name Role Phone Neelam Sarabia MD Primary Care Provider [phone] Encounter Details Date Type Department Care Team (Late st Contact Info) Description 08/31/2017 Conversion Encounter [facility] [address] [place] [id number] Social History Tobacco Use Types Packs/Day Years [...] documented as of this encounter Visit Diagnoses Not on filedocumented in this encounter Care Teams Web Development Manager Relationship Specialty Start Date End Date Neelam Sarabia MD [address] [place] [id number] PCP - General 08/20/17 documented as of this encounter
== END 2024-08-26 06:37 | disposition home or self-care (01) ==
LOC: HO.UMASIMG 06:36
PROVIDERS: Visit Provider Family Medicine
DX: N91.2 Amenorrhea, unspecified (principal)
CPT/HCPCS: 76801

== ENCOUNTER → 2024-08-26 10:00 | Outpatient (BNV) | payer SELFPAY | PROVIDERS: Visit Provider Radiology Diagnostic Radiology | DX: O26.841 Uterine size-date discrepancy, first trimester (principal); Z3A.11 11 weeks gestation of pregnancy | CPT/HCPCS: 76801 ==